=== PATIENT | female | born 1955 | race Caucasian/White ===

== ENCOUNTER 2022-10-12 17:24 | Emergency (ER) | payer MEDICARE ==
[~2022-10-12] VITALS: Ht 165.1 cm; Wt 73.9 kg
[~2022-10-12 17:24] MED LIST: ATENOLOL25 MG PO; ATIVAN1 MG PO; LORAZEPAM1 MG PO; Quinapril10 MG PO; SYNTHROID0.112 MG PO; VOLTAREN50 M1 PO
[2022-10-12 17:39] VITALS: BP 124/49
[2022-10-12 17:47] LABS: BASO # 0.1 10*3/uL (0.0-0.1); BASO % 0.4 % (0.0-1.0); EOS # 0.1 10*3/uL (0.0-0.4); EOS % 0.6 % (1.0-4.0); HEMATOCRIT 33.9 % (37.0-47.0); LYMPH # 2.4 10*3/uL (1.3-4.4); LYMPH % 15.4 % (27.0-41.0); MEAN CELL VOLUME 91.1 fl (81.0-99.0); MEAN CORPUSCULAR HGB 30.1 pg (27.0-31.0); MEAN PLATELET VOLUME 10.4 fl (9.6-12.3); MONO # 0.7 10*3/uL (0.1-1.0); MONO % 4.4 % (3.0-9.0); NEUT # 12.5 10*3/uL (2.3-7.9); NEUT % 78.8 % (47.0-73.0); PLATELET COUNT AUTOMATED 282 10*3/uL (130-400); RED BLOOD COUNT 3.72 10*6/uL (4.10-5.10); WHITE BLOOD COUNT 15.9 10*3/uL (4.8-10.8)
[2022-10-12 18:02] LABS: ALKALINE PHOSPHATASE 71 U/L (46-116); BUN 30 mg/dl (9-23); CHLORIDE 103 mmol/L (98-107); POTASSIUM 3.8 mmol/L (3.4-5.1); SGPT/ALT 8 U/L (10-49); TOTAL PROTEIN 6.2 gm/dL (6.0-8.0)
[2022-10-13] MEDS ORDERED: ELIQUIS5 M1 PO (05:59)
[2022-10-13] MEDS ORDERED: METFORMIN HYDR500 MG PO (05:59)
[2022-10-13] MEDS ORDERED: ROSUVASTATIN CA20 MG PO (06:01)
[2022-10-15] MEDS ORDERED: PROTONIX40 MG PO (10:33)
[2022-10-15] MEDS ORDERED: Carafate1 GM PO (10:33)
== END 2022-10-12 18:55 | disposition home or self-care (01) ==
LOC: ED 17:24
PROVIDERS: Student in an Organized Health Care Education/Training Program
DX: R42 Dizziness and giddiness (principal); R55 Syncope and collapse; Z88.8 Allergy status to other drugs, medicaments and biological substances; Z90.710 Acquired absence of both cervix and uterus; Z90.49 Acquired absence of other specified parts of digestive tract; E11.8 Type 2 diabetes mellitus with unspecified complications; I48.91 Unspecified atrial fibrillation